=== PATIENT | male | born 1995 | race African-American/Black ===

== ENCOUNTER 2024-08-07 10:22 | Emergency (ER) | payer SELFPAY ==
[~2024-08-07] VITALS: Ht 175.3 cm; Wt 90.7 kg
[2024-08-07 10:25] VITALS: PULSE 96; RESP 16; TEMP 98.7; O2SAT 96
[2024-08-07] MEDS ORDERED: AMOXICILLIN/CLAVULANATE K 875 MG TAB ONE (10:46)
[2024-08-07] MEDS ORDERED: TETANUS/DIPHTHERIA TOX ADULT 0.5 ML SYR ONE (10:46)
[2024-08-07] MEDS: TETANUS/DIPHTHERIA TOX ADULT 0.5 ML SYR IM ONE (10:55)
[2024-08-07] MEDS: AMOXICILLIN/CLAVULANATE K 875 MG TAB PO STA (10:55)
[2024-08-07] MEDS ORDERED: BACITRACIN ZINC 0.9GM TP ONE (11:27)
[2024-08-07] MEDS: BACITRACIN ZINC 0.9GM TP ONE (11:33)
[2024-08-07] MEDS ORDERED: AMOX TR-K CLV1 EAC2 PO (11:46)
== END 2024-08-07 11:55 | disposition home or self-care (01) ==
LOC: FSED 10:48
DX: S01.511A Laceration without foreign body of lip, initial encounter (principal); Y04.0XXA Assault by unarmed brawl or fight, initial encounter; Y92.89 Other specified places as the place of occurrence of the external cause
CPT/HCPCS: 90471; 90714; 99283

== ENCOUNTER 2024-08-12 10:46 | Emergency (ER) | payer SELFPAY ==
[~2024-08-12] VITALS: Ht 175.3 cm; Wt 88.5 kg
[~2024-08-12 10:46] MED LIST: AMOX TR-K CLV1 EAC2 PO
[2024-08-12 11:00] VITALS: PULSE 65; RESP 17; TEMP 98.7; O2SAT 98
== END 2024-08-12 11:08 | disposition home or self-care (01) ==
LOC: FSED 10:48
DX: Z48.02 Encounter for removal of sutures (principal)
CPT/HCPCS: 99282; S0630